=== PATIENT | male | born 1965 | race Caucasian/White ===

== ENCOUNTER 2018-06-11 20:17 | Observation (INO) | payer BC ==
[~2018-06-11] VITALS: Ht 188 cm; Wt 77.0 kg
[2018-06-11 20:44] LABS: HEMOGLOBIN 13.9 G/DL (12.5-16.6); MCH 30.6 PG (29.0-34.0); MCHC 34.8 G/DL (30.0-36.0); MCV 88.1 FL (86-99); PLATELET COUNT 288 K/uL (156-360); RBC DIS.WIDTH-CV 12.1 % (11.8-14.6); RBC DIS.WIDTH-SD 39.2 % (39-53); RED BLOOD COUNT 4.54 M/uL (4.00-5.50); WHITE BLOOD COUNT 7.9 K/uL (4.1-10.2)
[2018-06-11 20:58] LABS: CHLORIDE 107 mEq/L (99-109); POTASSIUM 4.3 mEq/L (3.7-5.4); SODIUM 142 mEq/L (136-147)
[2018-06-11 21:00] LABS: GLUCOSE 98 mg/dL (70-99)
[2018-06-11 21:04] LABS: CREATININE 1.2 mg/dL (0.6-1.3); GFR ESTIMATE (CALCULATED) > 59 mL/min/ (58.99-99999)
[2018-06-11 21:05] LABS: UREA NITROGEN (BUN) 23 mg/dL (9-23)
[2018-06-11 21:10] LABS: TROP-I INTERPRETATION NEGATIVE; TROPONIN-I < 0.01 ng/mL (0.0-0.30)
[2018-06-11] MEDS ORDERED: AMLODIPINE BESY10 MG PO (21:51)
[2018-06-11 23:33] LABS: ALBUMIN 4.4 g/dL (3.2-4.8)
[2018-06-11 23:36] LABS: TOTAL PROTEIN 7.2 g/dL (6.4-8.3)
[2018-06-11 23:38] LABS: TOTAL BILIRUBIN 0.5 mg/dL (0.0-1.0)
[2018-06-11 23:39] LABS: ALKALINE PHOSPHATASE 58 IU/L (3-129)
[2018-06-11 23:41] LABS: AST (GOT) 17 IU/L (2-34)
[2018-06-11 23:42] LABS: ALT (GPT) 19 IU/L (3-49); DIRECT BILIRUBIN 0.2 mg/dL (0.0-0.3)
[2018-06-12 00:11] VITALS: BP 141/92
[2018-06-12 02:10] LABS: LIPASE 31 U/L (1.0-51.0)
[2018-06-12 02:56] LABS: ERTH.SED.RATE 10 MM/HR (0-20)
[2018-06-12 03:12] LABS: C-REACTIVE PROTEIN < 1.0 MG/L (0-10)
[2018-06-12 03:36] LABS: TROP-I INTERPRETATION NEGATIVE; TROPONIN-I < 0.01 ng/mL (0.0-0.30)
[2018-06-12 05:37] VITALS: BP 132/76
[2018-06-12 08:00] VITALS: BP 141/75
[2018-06-12 09:48] LABS: TROP-I INTERPRETATION NEGATIVE; TROPONIN-I < 0.01 ng/mL (0.0-0.30)
[2018-06-12 12:05] VITALS: BP 128/80
[2018-06-12 16:05] VITALS: BP 136/87
[2018-06-12] MEDS ORDERED: IBU400 MG PO (17:22)
== END 2018-06-12 17:54 | disposition home or self-care (01) ==
LOC: EME → EDBD 20:17 → EME 20:17 → 4SOUTH 23:12 → EDOF 23:12 → ENRESERV 23:15 → 4SOUTH 23:51
PROVIDERS: Physician Assistant
PROC: B246ZZZ Ultrasonography of Right and Left Heart (ICD-10-PCS; principal; 2018-06-11)
DX: R07.9 Chest pain, unspecified (principal); I10 Essential (primary) hypertension; Z79.82 Long term (current) use of aspirin; Z83.3 Family history of diabetes mellitus; Z82.3 Family history of stroke; M79.602 Pain in left arm; M79.601 Pain in right arm; R05 Cough; R51 Headache
CPT/HCPCS: 71046; 80048; 80076; 83690; 84484; 85027; 85379; 85651; 86140; 93005; 93306; 99281; 99285; G0378; J1644